=== PATIENT | male | born 1980 | race Caucasian/White ===

== ENCOUNTER 2023-10-25 16:52 | Emergency (ER) | payer SELFPAY ==
[2023-10-25 16:54] VITALS: BP 120/81; PULSE 111; RESP 20; TEMP 38.2; O2SAT 95; BMI 36.2
--- NOTE | 2023-10-25 17:08 | EKG12_ITS ---
Test Reason : Blood Pressure : / mmHG Vent. Rate : 117 BPM Atrial Rate : 117 BPM P-R Int : 144 ms QRS Dur : 078 ms QT Int : 306 ms P-R-T Axes : 071 083 055 degrees QTc Int : 426 ms Sinus tachycardia Otherwise normal ECG Confirmed by SUMMER MEADE, JAYCEE ([id number]), movie editor KIM HEDRICK ([id number]) on 10/26/2023 9:47:06 AM Referred By: CHAN Confirmed By:JAYCEE WHEELER MD
--- NOTE | 2023-10-25 17:24 | EDS_ITS ---
HPI HPI - URI History of Present Illness Chief Complaint: Shortness of Breath Detail of Chief Complaint: Subjective fever, chills, nonproductive cough Informant: patient and spouse/S.O. Onset/Context/Timing Onset: Days (Onset approximately 3 days ago) Context: Sudden Onset Timing: Continuous and Waxes and wanes Quality: Upper respiratory tract infection symptoms Location: Respiratory Current Severity: Moderate Maximum Severity: Moderate Worsened by: Not Worsened By Swallowing, Eating Solids or Drinking Liquids Relieved by: Not Relieved By Tylenol or NSAIDs Associated Symptoms Associated Symptoms: Positive for Nasal Congestion, Myalgias, Shortness of Breath and Productive Cough; Negative for Headache, Sinus Pressure, Nausea, Vomiting, Diarrhea, Chest Pain, Nonproductive cough or Hemoptysis Narrative Narrative: Patient is a 43-year-old male who is a smoker of 1/2 pack/day presents with upper respiratory tract infectious symptoms that started 3 days ago. He denies ill contacts. He denies headache, photophobia, neck pain or neck stiffness. He denies photophobia or sonophobia. He denies pain with breathing. He does have a cough which essentially nonproductive. He does not look at the sputum when he coughs it up. He has not noted any blood. He has not noted a rash. He is petechiae which he states is normal. Petechiae is noted on the torso. He denies leg pain, swelling or discoloration. Prior similar symptoms: No Recent Illness/Hospitalization: No ROS ROS ED Constitutional Constitutional ED: Reports chills, fever(s) and subjective; Denies sweats or weight loss Eyes Eyes: Denies blurry vision, change in vision or diplopia ENT ENT ED: Reports sore throat and other Details: And per HPI narrative ; Denies ear pain or rhinorrhea Cardiovascular Cardiovascular: Denies chest pain, orthopnea, palpitations, paroxysmal nocturnal dyspnea or racing heartbeat Respiratory/Chest Respiratory/Chest: Reports cough, dyspnea and sputum; Denies dyspnea on exertion, orthopnea or paroxysmal nocturnal dyspnea Gastrointestinal Gastrointestinal: Denies abdominal pain, diarrhea, nausea or vomiting Genitourinary Genitourinary ED: Denies dysuria, hematuria or urinary frequency Musculoskeletal Musculoskeletal: Reports arthralgias and myalgias; Denies back pain or neck pain Integumentary Denies rash Neurologic Neurologic: Reports weakness; Denies headache(s) or paresthesias Endocrine Endocrinology: Denies cold intolerance or heat intolerance Hematologic/Lymphatic Hematologic/Lymphatic: Denies easy bleeding or easy bruising PFSH PFSH Medical History no medical history no medical history Home Medications ciprofloxacin HCl 500 mg tablet 500 mg PO BID ##20 10/14/17 [Rx Last Taken Unknown] hydrocodone-acetaminophen 5-325mg 5mg-325mg 1 - 2 tab PO Q4H PRN PRN Pain ##20 10/14/17 [Rx Last Taken Unknown] metronidazole 500 mg tablet 500 mg PO Q6H #40 tabs 10/14/17 [Rx Last Taken Unknown] Allergy/AdvReac Type Severity Reaction Status Date / Time No Known Allergies Allergy Verified 10/25/23 16:53 Surgical History no surgical history no surgical history Social History (Updated 10/25/23 @ 17:[address] Ceasar Phelps MD) household members: spouse and children Smoking Status: Current every day smoker tobacco type: cigarettes EXAM Physical Exam Const Vital Signs: 10/25/23 16:54 10/25/23 16:53 10/25/23 18:53 Temperature 100.7 F H Temperature Source Temporal Pulse Rate 111 H 78 Respiratory Rate 20 H 18 Respiratory Effort Short of Breath Respiratory Depth Normal Respiratory Pattern Normal Blood Pressure 120/81 H Blood Pressure Mean 94 Pulse Ox 95 97 Oxygen Delivery Method Room Air Room Air Room Air Positive well nourished, well developed and obese Constitutional Narrative: Patient appears ill but not toxic. General Appearance ED: well developed; Negative for cyanotic, diaphoretic or pallor Nutritional Appearance: obese HEENT Reports moist mucous membranes HEENT Narrative: Head is atraumatic and normocephalic. Nares patent with clear drainage. Posterior pharynx out erythema exudate. Uvula is midline. normocephalic and atraumatic Eyes PERRL and EOMs intact bilaterally General Eye ED: Negative for pale conjunctiva or scleral icterus Neck no lymphadenopathy, supple, no meningeal signs and no JVD Resp normal respiratory effort and clear to auscultation bilaterally Resp Narrative: No abnormal breath sounds even with forced expiration. Cardio S1 normal heart sound, S2 normal heart sound and no murmurs Rate: tachycardic Rhythm: regular rhythm GI non-tender, non-distended and no masses Back/Spine no CVA tenderness Extremity normal to inspection and full ROM Neuro oriented x3, CN's II-XII intact bilaterally and no sensory deficits noted Sensorium / Orientation: alert Motor Exam: strength 5/5 throughout Psych mental status grossly normal Skin Skin Narrative: As noted in the HPI patient has petechiae to torso. He states this is normal. There is no petechiae lower extremity. Furthermore there is no periorbital petechiae or conjunctival petechiae. General Skin Exam: Negative for jaundice or pallor Lesions: no lesions Rashes: no rashes MDM MDM MDM Narrative Medical decision making narrative: Febrile. His symptoms are suggestive of viral infection. Will obtain COVID and influenza since he is not vaccinated for influenza. He received 650 mg of acetaminophen for his fever. Chest x-ray was obtained to assess for any evidence of pneumonia. History & Record Review Additional record(s) reviewed:: Prior ED visit and Prior labs Lab Data Attestation: I reviewed the patient's lab results. Lab results narrative: COVID rapid antigen panel negative. Influenza antigen positive for type B. Radiography Chest X-Ray - ED: 2 View and Read by ED Physician (Chest x-rays independent reviewed interpreted by me at 1751. Cardiac silhouette size normal. Lung parenchyma normal. There is no effusion. Perihilar regions normal. Osseous structures unremarkable.) Diagnostic Testing: Clinical Impression(s) from Imaging Studies Chest X-Ray 10/25/23 17:35 IMPRESSION: Normal x-ray examination of the chest. Electronically Signed: Huey Rodriguez MD at 18:05 EST Reading Location ID and State: [address] [place] [address] , Service support , Discharge Plan Triage Chief Complaint: Shortness of Breath ED Provider: Ceasar Phelps Dx/Rx/DC Orders Clinical Impression: Fever, Type B influenza, Sinus tachycardia seen on monitor technician Instructions: ED Influenza (Adult) Prescriptions: No Action hydrocodone-acetaminophen 1 TABLET tablet 1 - 2 tab PO Q4H PRN PRN (Reason: Pain) Qty: 20 0RF metronidazole 500 MG tablet 500 mg PO Q6H Qty: 40 0RF ciprofloxacin HCl 500 MG tablet 500 mg PO BID Qty: 20 0RF Stand Alone Forms: ED Work / School Excuse Primary Care Provider: Care Physician,No Primary Referrals: Aisha Montelongo [Non-Staff] - 1 Week if not improving Care Physician,No Primary [Primary Care Provider] - Disposition Disposition: Home, Self Care
--- NOTE | 2023-10-25 17:35 | RAD_ITS ---
STUDY: X-RAY CHEST REASON FOR EXAM: Male, 43 years old. Cough and fever TECHNIQUE: Frontal and lateral views of the chest. COMPARISON: 08/05/2014. FINDINGS: The lungs are clear and expanded. There is no demonstrated pleural abnormality. Normal size heart. Normal mediastinum and césar. Normal visualized pulmonary arteries. Normal visualized aortic arch and descending thoracic aorta. Normal visualized thoracic spine. Normal visualized ribs, clavicles, and shoulders. There is no demonstrated abnormality of the visualized soft tissue structures of the upper abdomen. RAD/Chest PA and Lateral IMPRESSION: Normal x-ray examination of the chest. Electronically Signed: Huey Rodriguez MD at 18:05 EST ,
[2023-10-25] MEDS: Acetaminophen 325 MG Tablet 650 MG PO (17:37)
[2023-10-25 18:53] VITALS: PULSE 78; RESP 18; O2SAT 97
== END 2023-10-25 19:31 | disposition home or self-care (01) ==
PROVIDERS: Emergency Provider Emergency Medicine; Visit Provider Emergency Medicine
DX: J10.1 Influenza due to other identified influenza virus with other respiratory manifestations (principal); R00.0 Tachycardia, unspecified; F17.210 Nicotine dependence, cigarettes, uncomplicated; R50.9 Fever, unspecified
CPT/HCPCS: 71046; 87428; 93005; 99283

== ENCOUNTER 2024-03-17 22:21 | Emergency (ER) | payer SELFPAY ==
[2024-03-17 22:22] VITALS: BP 139/94; PULSE 100; RESP 16; TEMP 36.4; O2SAT 97; BMI 34.7
--- NOTE | 2024-03-17 22:53 | CT_ITS ---
We are attempting to reach an attending provider to discuss findings. An addendum with communication details will be sent when the communication is complete. EXAM: CT ABDOMEN AND PELVIS WITH INTRAVENOUS CONTRAST CLINICAL INDICATION: LLQ pain / ? Diverticulitis TECHNIQUE: Helically acquired images were obtained of the abdomen and pelvis with intravenous contrast. This CT exam was performed using one or more of the following dose reduction techniques: automated exposure control, adjustment of the mA and/or kV according to patient size, and/or use of iterative reconstruction technique. RADIATION DOSE: L4-5 disc protrusion. No = 16.72 mGy, DLP = 1223.93 mGy-cmContrast: IV 100mL [id number] COMPARISON: October 14, 2017, there was acute diverticulitis at the distal descending colon on prior exam. FINDINGS: LOWER THORAX: Unremarkable. Lung bases are clear. No cardiomegaly. No significant pericardial effusion. ABDOMEN: LIVER: Low-attenuation fatty-appearing liver with focal sparing near the gallbladder again noted. Right lobe of liver is 20.8 cm in length, previously 19 cm in length. GALLBLADDER AND BILE DUCTS: Unremarkable. No calcified gallstones. No gallbladder distention or wall edema. No intra- or extrahepatic biliary ductal dilation. PANCREAS: Unremarkable. No focal cystic or solid mass. SPLEEN: Unremarkable. Normal size without focal cystic or solid mass. ADRENALS: Unremarkable. No nodules. KIDNEYS AND URETERS: Unremarkable. Normal renal size and position. No hydronephrosis. STOMACH AND BOWEL: Mild fluid and gas in the stomach mildly prominent fluid in mid and distal small bowel loops. PELVIS: APPENDIX: No evidence of acute appendicitis. BLADDER: Unremarkable. REPRODUCTIVE: Unremarkable as visualized. No mass. ABDOMEN and PELVIS: INTRAPERITONEAL SPACE: No free air. Trace fluid in the proximal left paracolic gutter. No abscess. No intrapelvic free fluid. BONES/JOINTS: Mildly increased posterior protruding L4-5 disc, protruding roughly 8 mm.. No suspicious lytic or blastic abnormality. SOFT TISSUES: Mild gas and stool in the right colon, mild gas in the transverse colon. Wall thickening, luminal narrowing and hazy pericolonic soft tissue stranding and fascial thickening involving the proximal to mid descending colon, consistent with mild acute diverticulitis. Moderate-marked underlying diverticulosis throughout the descending and proximal sigmoid colon. No discrete abdominal or pelvic wall hernia. VASCULATURE: Unremarkable. Abdominal aorta is non-dilated. LYMPH NODES: A few mildly prominent gastrohepatic lymph nodes appear similar to 2017. CT/Abdomen/Pelvis W IV Cont ONLY IMPRESSION: 1. Acute diverticulitis of the proximal to mid descending colon. Marked underlying diverticulosis. Trace free fluid. No abscess or free air. 2. Persistent diffuse hepatic steatosis. Mild increased hepatomegaly. 3. Mild and similar gastrohepatic and periportal adenopathy. 4. Mild increased L4-5 posterior disc protrusion with mild apparent narrowing of the midline canal to roughly 9 mm, it was previously 10 mm. Electronically Signed: Shahla Stout MD at 1:50 EDT ,
[2024-03-17 23:13] LABS: Absolute Lymphocyte Count 2.65 X10^3/uL (0.83-4.51); Absolute Neutrophil Count 6.7 X10^3/uL (2.0-7.7); Basophil# 0.05 X10^3/uL; Basophil% 0.5 % (0-1); Eosinophil# 0.19 X10^3/uL; Eosinophils% 1.8 % (0-5); Hematocrit 45.3 % (40-54); Hemoglobin 15.3 g/dL (13.0-16.5); Lymphocyte # 2.65 X10^3/ul (0.83-4.51); Lymphocyte % 24.9 % (19-41); Mean Corp Hgb Conc 33.8 g/dL (32-36); Mean Corpuscular Volume 88.8 fL (80-94); Mean Platelet Vol. 9.6 fl (6.2-12.0); Monocyte# 1.03 X10^3/uL; Monocyte% 9.7 % (0-10); NRBC Flagged by Analyzer 0 % (0-5); Neutrophil # 6.67 X10^3/uL (2.7-7.7); Neutrophil % 62.6 % (47-70); Platelet Count 202 K/mm3 (150-450); RBC Distribution Width CV 13.1 % (11.6-14.6); RBC Distribution Width SD 42.5 fl (35.1-43.9); White Blood Count 10.6 K/mm3 (4.4-11.0)
[2024-03-17] MEDS: 0.9% Normal Saline (1000mL) 1,000 ML 999 ML IV (23:13)
[2024-03-17] MEDS: Piperacil/Tazobactam 3.375 GM in 0.9% Normal Saline (50mL MB+) 50 ML IV (23:13)
[2024-03-17] MEDS: Morphine 4 MG/ML Syringe IV (23:14)
[2024-03-17] MEDS: Ondansetron 4 MG/2 ML Vial IV (23:14)
[2024-03-17 23:31] LABS: AST(SGOT) 25 U/L (15-37); Alanine Aminotransfer ALT/SGPT 51 U/L (16-61); Albumin, Serum 3.5 g/dL (3.2-5.0); Alkaline Phosphatase 51 U/L (45-117); Anion Gap 5 (5-15); BUN 15 mg/dL (7-18); BUN/Creat Ratio 18.4 RATIO (10-20); Bilirubin, Direct 0.19 mg/dL (0.00-0.30); Calcium,Total 8.8 mg/dL (8.5-10.1); Chloride 106 mmol/L (98-107); Creatinine, Serum 0.81 mg/dL (0.70-1.30); EST Glomerular Filtration Rate 110 mL/min (>60); Est Glom Filt Rate - Afr Amer 133 mL/min (>60); Estimated Creatinine Clearance 147.44 ml/min; Globulin 3.6 g/dL (2.2-4.2); Glucose 109 mg/dL (74-106); Lipase 42 U/L (13-75); Potassium 4.1 mmol/L (3.5-5.1); Protein, Total 7.1 g/dL (6.4-8.2); Sodium Level 138 mmol/L (136-145)
--- NOTE | 2024-03-17 23:34 | EDS_ITS ---
HPI History of Present Illness Chief Complaint: Abd Pain Informant: patient and spouse/S.O. Narrative Narrative: Patient is a 43-year-old male who reports a past history of diverticulitis multiple years ago. Otherwise he states he does not see a family doctor and he has no known past medical history. He states over the past 2 or 3 days he has developed pain in the left lower to mid abdomen without any type of trauma or excessive activity. He states that he has had constipation which is abnormal for him. He reports nausea without vomiting. He denies any dysuria or hematuria. He states the pain has steadily progressed over the past few days and he is concerned for infection once again and therefore comes in for evaluation. PFSH PFSH Medical History no medical history Home Medications amoxicillin 875 mg-potassium clavulanate 125 mg tablet 1 tab PO BID 10 days #20 tabs 03/18/24 [Rx Last Taken Unknown] oxycodone-acetaminophen 5 mg-325 mg tablet (Percocet) 1 tab PO Q6H PRN pain 3 days #12 tabs 03/18/24 [Rx Last Taken Unknown] Allergy/AdvReac Type Severity Reaction Status Date / Time No Known Allergies Allergy Verified 03/17/24 22:22 Social History (Updated 10/25/23 @ 17:[address] Ceasar Phelps MD) household members: spouse and children Smoking Status: Current every day smoker tobacco type: cigarettes ROS ROS ED Constitutional Constitutional ED: Denies chills or fever(s) ENT ENT ED: Denies sore throat Cardiovascular Cardiovascular: Denies chest pain Respiratory/Chest Respiratory/Chest: Denies cough or dyspnea Gastrointestinal Gastrointestinal: Reports abdominal pain, constipation and nausea; Denies diarrhea or vomiting Genitourinary Genitourinary ED: Denies dysuria or hematuria Musculoskeletal Musculoskeletal: Denies back pain or myalgias Integumentary Denies rash Neurologic Neurologic: Denies headache(s) Hematologic/Lymphatic Hematologic/Lymphatic: Denies easy bleeding or easy bruising EXAM Physical Exam Const Vital Signs: 03/17/24 22:22 03/18/24 00:21 03/18/24 02:00 Temperature 97.6 F L Temperature Source Temporal Pulse Rate 100 79 76 Respiratory Rate 16 18 16 Blood Pressure 139/94 H 118/52 L 114/72 Blood Pressure Mean 109 74 86 Pulse Ox 97 95 99 Oxygen Delivery Method Room Air 03/18/24 02:00 Temperature 97.8 F Temperature Source Pulse Rate 76 Respiratory Rate 16 Blood Pressure 114/72 Blood Pressure Mean 86 Pulse Ox 99 Oxygen Delivery Method Positive well nourished and well developed General Appearance ED: well developed; Negative for pallor HEENT Reports moist mucous membranes HEENT Narrative: No signs of infection noted in the posterior pharynx Eyes PERRL and EOMs intact bilaterally General Eye ED: Negative for pale conjunctiva or scleral icterus Neck supple Resp normal respiratory effort and clear to auscultation bilaterally Cardio regular rate and regular rhythm Rate: other Other Details: Heart is regular rate and rhythm without murmurs rubs or gallop Radial and carotid pulses are equal and symmetric GI non-distended GI Narrative: Abdomen is soft and nondistended with normal active bowel sounds. Patient has pain on palpation in the left mid and left lower quadrant without voluntary guarding or rigidity. No pulsatile mass or fluid wave Auscultation: normoactive bowel sounds Palpation: soft Back/Spine Back/Spine Narrative: Mild left CVA pain noted Extremity normal to inspection Neuro oriented x3, CN's II-XII intact bilaterally and no sensory deficits noted Sensorium / Orientation: alert Motor Exam: strength 5/5 throughout Psych mental status grossly normal Skin no rashes or lesions noted, no wounds and skin turgor normal General Skin Exam: Negative for jaundice or pallor MDM MDM MDM Narrative Medical decision making narrative: Patient arrived to the ER hypertensive but otherwise with stable vitals. He had pain in the left mid to lower abdomen and therefore differential diagnosis is for diverticulitis versus colitis versus kidney stone versus muscular pull/strain. Basic labs with urine sample and CT scan were obtained. Labs revealed no clinically significant findings and CT scan showed acute uncomplicated diverticulitis. Therefore at this time as he does not have workup or vital signs to suggest sepsis and CT scan does not show perforation or absce ss there is no need for admission and he can be given outpatient antibiotics and discharged home. History & Record Review Discussion w/independent historian: Patient and Significant other Lab Data Attestation: I reviewed the patient's lab results. Labs: Laboratory Results - last 24 hr 03/17/24 03/18/24 23:07 00:36 WBC 10.6 RBC 5.10 Hgb 15.3 Hct 45.3 MCV 88.8 MCH 30.0 MCHC 33.8 RDW Std Deviation 42.5 RDW Coeff of Miguel 13.1 Plt Count 202 MPV 9.6 Immature Gran % (Auto) 0.500 Neut % (Auto) 62.6 Lymph % (Auto) 24.9 [place] % (Auto) 9.7 Eos % (Auto) 1.8 Baso % (Auto) 0.5 Absolute Neuts (auto) 6.7 Absolute Lymphs (auto) 2.65 Nucleated RBC % 0 Sodium 138 Potassium 4.1 Chloride 106 Carbon Dioxide 27.0 Anion Gap 5 BUN 15 Creatinine 0.81 Estim Creat Clear Calc 147.44 Est GFR (MDRD) Af Amer 133 Est GFR (MDRD) Non-Af 110 BUN/Creatinine Ratio 18.4 Glucose 109 H Lactic Acid 1.1 Calcium 8.8 Total Bilirubin 0.60 Direct Bilirubin 0.19 AST 25 ALT 51 Alkaline Phosphatase 51 Total Protein 7.1 Albumin 3.5 Globulin 3.6 Lipase 42 Urine Color Yellow Urine Clarity Clear Urine pH 7.0 Ur Specific [place] 1.010 Urine Protein 30 H Urine Glucose (UA) Normal Urine Ketones Negative Urine Occult Blood 10 H Urine Nitrite Negative Urine Bilirubin Negative Urine Urobilinogen 1 H Ur Leukocyte Esterase Negative Urine RBC 0 SEEN Urine WBC 0 SEEN Ur Squamous Epith Cells 0 SEEN Urine Bacteria 0 SEEN Urine Mucus 0 SEEN Discharge Plan Triage Chief Complaint: Abd Pain ED Provider: Reuben Holly Dx/Rx/DC Orders Clinical Impression: Diverticulitis, Lumbar herniated disc Instructions: ED Diverticulitis, ED Herniated Intervertebral Disk Prescriptions: New amoxicillin-pot clavulanate 875-125 mg tablet 1 tab PO BID 10 Days Qty: 20 0RF oxycodone-acetaminophen [Percocet] 5-325 mg tablet 1 tab PO Q6H PRN (Reason: pain) 3 Days Qty: 12 0RF Primary Care Provider: Care Physician,No Primary Referrals: Hector Orozco MD [Med Staff - Active Staff] - Care Physician,No Primary [Primary Care Provider] - Activity Restrictions/Additional Instructions: Please return to the ER if you have any further concerns or symptoms worsen despite taking your antibiotics Disposition Disposition: Home, Self Care Discharge Date/Time: 03/18/24 02:10
[2024-03-18 00:10] LABS: Lactic Acid 1.1 mmol/L (0.4-1.9)
[2024-03-18 00:21] VITALS: BP 118/52; PULSE 79; RESP 18; O2SAT 95
[2024-03-18 00:51] LABS: Bacteria 0 SEEN /hpf (None Seen); Mucous, Urine 0 SEEN /hpf (<or=2+); Red Blood Cells-Urine 0 SEEN /hpf (0-5); Squamous Epithelial Cells - UA 0 SEEN /hpf (0-5); White Blood Cells 0 SEEN /hpf (0-5)
[2024-03-18 00:56] LABS: Color, Urine Yellow (Yellow); Glucose, Dipstick Normal (Normal); Ketone-Dipstick Negative (Negative); Leukocyte Esterase-Dipstick Negative /ul (Negative); Nitrite-Dipstick Negative (Negative); Occult Blood-Urine 10 /ul (Negative); Protein-Dipstick 30 mg/dl (Negative); Urine Bilirubin Dipstick Negative (Negative); Urine Clarity Clear (Clear); Urine Urobilinogen 1 mg/dl (Normal)
[2024-03-18 02:00] VITALS: BP 114/72; PULSE 76; RESP 16; TEMP 36.6; O2SAT 99
== END 2024-03-18 02:10 | disposition home or self-care (01) ==
PROVIDERS: Emergency Provider Emergency Medicine; Visit Provider Emergency Medicine
DX: K57.32 Diverticulitis of large intestine without perforation or abscess without bleeding (principal); F17.210 Nicotine dependence, cigarettes, uncomplicated; M51.26 Other intervertebral disc displacement, lumbar region
CPT/HCPCS: 74177; 80048; 80076; 81001; 83605; 83690; 85025; 96361; 96365; 96375; 99283; J7030; J7050; Q9967; A4216; J2405